=== PATIENT | male | born 1950 | race Caucasian/White ===

== ENCOUNTER 2018-08-25 14:41 | Day surgery (SDC) | payer MEDICARE, BC ==
[2018-08-25] VITALS (8 sets, daily range): BP systolic 111–147; BP diastolic 59–77
[~2018-08-25] VITALS: Ht 177.8 cm; Wt 125.3 kg
[~2018-08-25 14:41] MED LIST: ASPI81TA52 PO; ATOR20TA PO; FURO-150 PO; METO25TA6 PO; MULT-342 PO; NITR0.4T51 SL; PRAS50CA2 PO; SERT50TA PO; potassium PO; vitamin B-12 PO
[2018-08-25] MEDS ORDERED: pneumococcal 23-VAL P-sac vacc 25 mcg/0.5ml vial IMVAC ONE (16:10)
[2018-08-25] MEDS ORDERED: diphenhydrAMINE 25mg capsule PO PRN (16:40)
[2018-08-25] MEDS ORDERED: normal saline 1000ml 1,000 ML IV SCH (16:40)
[2018-08-25] MEDS ORDERED: LORazepam 0.5 MG tablet PO PRN (16:40)
[2018-08-25] MEDS ORDERED: midazolam 2 mg/2 ml injection ONE (17:34)
[2018-08-25] MEDS ORDERED: fentaNYL/PF 50MCG/1 ML 2ML syringe ONE (17:34)
[2018-08-25] MEDS ORDERED: LIDOcaine 1% (10mg/ml)w/preservative injection 20ml MDV ONE (17:35)
[2018-08-25] MEDS ORDERED: iohexol 350MG/ML 100ml bottle IV ONE (17:35)
[2018-08-25] MEDS ORDERED: OXAZEpam 15mg capsule PO PRN (18:55)
[2018-08-25] MEDS ORDERED: proCHLORperazine 10 MG/2 ml inj IV PRN (18:55)
[2018-08-25] MEDS ORDERED: HYDROcodone/acetaminophen 5mg/325mg tablet PO PRN (18:55)
[2018-08-25] MEDS ORDERED: acetaminophen 325mg tablet PO PRN (18:55)
[2018-08-25] MEDS ORDERED: ondansetron/PF 4mg/2ml inj IV PRN (18:55)
[2018-08-25] MEDS ORDERED: HYDROcodone/acetaminophen 10/325mg tab PO PRN (18:55)
[2018-09-01] MEDS ORDERED: POTA20TA19 PO (14:40)
== END 2018-08-25 20:45 | disposition home or self-care (01) ==
LOC: SSTAY O 14:41
PROVIDERS: ATTEND Internal Medicine Interventional Cardiology
DX: I25.700 Atherosclerosis of coronary artery bypass graft(s), unspecified, with unstable angina pectoris (principal); I10 Essential (primary) hypertension; E78.5 Hyperlipidemia, unspecified; I27.20 Pulmonary hypertension, unspecified; F32.9 Major depressive disorder, single episode, unspecified; G47.33 Obstructive sleep apnea (adult) (pediatric); I35.2 Nonrheumatic aortic (valve) stenosis with insufficiency; E11.9 Type 2 diabetes mellitus without complications; N28.89 Other specified disorders of kidney and ureter; I44.2 Atrioventricular block, complete; Z95.1 Presence of aortocoronary bypass graft; Z87.891 Personal history of nicotine dependence; Z95.0 Presence of cardiac pacemaker; Z96.652 Presence of left artificial knee joint; Z79.82 Long term (current) use of aspirin; Z79.84 Long term (current) use of oral hypoglycemic drugs; Z95.5 Presence of coronary angioplasty implant and graft; Z72.89 Other problems related to lifestyle; Z79.899 Other long term (current) drug therapy; Z98.890 Other specified postprocedural states; Z82.49 Family history of ischemic heart disease and other diseases of the circulatory system
CPT/HCPCS: 93005; 93459; 99152; 99153; A6257; C1760; J1644; J2001; J2250; J3010; J7030; Q0163; Q9967; A4620; C1769

== ENCOUNTER 2018-09-02 05:20 | Inpatient (IN) | payer MEDICARE, BC ==
[2018-09-01 15:26] LABS: ABG BASE EXCESS 1.1 mmol/L (-2.0-3.0); ABG HCO3 25.5 mmol/L (22.0-26.0); ABG OXYGEN SATURATION 93.9 % (95-98); ABG PCO2 (T) 39.7 mmHg (35.0-48.0); ABG PH (T) 7.425 (7.350-7.450); ABG PO2 (T) 67.5 mmHg (83-108); ALLEN'S TEST Positive; FCOHb 0.9 % (0.5-1.5); FMetHb 0.3 % (0.3-1.12); FO2Hb 92.8 % (94-100); TOTAL HEMOGLOBIN 14.4 G/dl (14.0-18.0)
[2018-09-01 16:14] LABS: BASOPHILS % (AUTO) 0.6 % (0-1); EOSINOPHILS # (AUTO) 0.1 X10'3 (0-0.9); EOSINOPHILS % (AUTO) 1.7 % (0-6); LYMPHOCYTES # (AUTO) 1.2 X10'3 (1.1-4.8); LYMPHOCYTES % (AUTO) 22.2 % (21-51); MEAN CORPUSCULAR HEMOGLOBIN 31.6 PG (27.0-31.0); MEAN CORPUSCULAR HGB CONC 34.1 % (33.0-36.5); MEAN CORPUSCULAR VOLUME 92.7 FL (78-98); MEAN PLATELET VOLUME 8.1 FL (7.4-10.4); MONOCYTES # (AUTO) 0.3 X10'3 (0-0.9); NEUTROPHILS # (AUTO) 3.9 X10'3 (1.8-7.7); NEUTROPHILS % (AUTO) 69.5 % (42-75); PRE OP HEMATOCRIT 40.2 % (42.0-52.0); PRE OP HEMOGLOBIN 13.7 g/dL (14.0-17.9); PRE OP PLATELET COUNT 156 X10'3 (140-440); RED BLOOD COUNT 4.34 X10'6 (4.70-6.10); RED CELL DISTRIBUTION WIDTH 14.4 % (11.5-14.5)
[2018-09-01 16:14] LABS: CLARITY,URINE CLEAR (Clear); COLOR,URINE YELLOW (Yellow); GLUCOSE, URINE NEGATIVE (Neg); KETONES,URINE NEGATIVE (Neg); LEUKOCYTE ESTERASE ,URINE NEGATIVE (Neg); NITRITES, URINE NEGATIVE (Neg); OCCULT BLOOD,URINE NEGATIVE (Neg); PROTEIN,URINE NEGATIVE (Neg); UROBILINOGEN,URINE 0.2 E.U/dL (0.2-1.0)
[2018-09-01 16:19] LABS: UA COLLECTION TYPE CLN CATCH MIDSTREAM
[2018-09-01 16:29] LABS: ALBUMIN 3.8 G/DL (3.4-5.0); ALKALINE PHOSPHATASE 90 IU/L (46-116); BLOOD UREA NITROGEN 15 MG/DL (7-18); BUN/CREATININE RATIO 14.7 (5.4-32.0); CALCIUM 9.2 MG/DL (8.5-10.1); CHLORIDE 104 MMOL/L (99-107); CREATININE 1.02 MG/DL (0.60-1.10); PRE OP ALT 42 U/L (30-65); PRE OP ANION GAP 8 (8-16); PRE OP AST 27 U/L (10-37); PRE OP BILIRUB, TOTAL 0.9 MG/DL (0.0-1.0); PRE OP GLUCOSE 103 MG/DL (70-104); PRE OP POTASSIUM 4.1 MMOL/L (3.4-5.1); PRE OP SODIUM 139 MMOL/L (135-145); TOTAL CARBON DIOXIDE 26.6 MMOL/L (24-32); TOTAL PROTEIN 7.5 G/DL (6.4-8.2); eGFR 72 ML/MIN
[2018-09-01 16:31] LABS: HEMOGLOBIN A1C 5.8 % (4.5-6.2)
[2018-09-01 17:05] LABS: PRE OP PROTIME 10.4 SECONDS (9.0-12.0)
[2018-09-02] VITALS (9 sets, daily range): BP systolic 110–145; BP diastolic 50–82
[~2018-09-02] VITALS: Ht 177.8 cm; Wt 130.0 kg
[~2018-09-02 05:20] MED LIST changes: +LORazepam 2 mg/ml vial ONE; -METO25TA6 PO; -MULT-342 PO; +POTA20TA19 PO; -PRAS50CA2 PO; +dextrose 50%-water 50ml dispensing syringe IV PRN; +mupirocin 2% nasal ointment 1gm UD NS SCH; -potassium PO; +ringers solution, lacted 1,000 ML IV SCH; -vitamin B-12 PO
[2018-09-02] MEDS ORDERED: cefazolin/dext.iso 2gm/100 ML IV ONE (05:30)
[2018-09-02] MEDS ORDERED: famotidine 20mg tablet PO ONE (05:30)
[2018-09-02] MEDS ORDERED: ceFAZolin inj. 3,000 MG in normal saline 100ml IV soln 100 ML IV ONE (05:30)
[2018-09-02] MEDS ORDERED: insulin regular, human inj. 100 UNITS in normal saline 100ml IV IV SCH ×2 (05:30)
[2018-09-02] MEDS ORDERED: LORazepam 2 mg/ml vial IV PRN (05:30)
[2018-09-02] MEDS ORDERED: vancomycin inj 1,500 MG in normal saline 300ml IV soln IV ONE (05:30)
[2018-09-02] MEDS ORDERED: LIDOcaine 1% (10mg/ml) 2ml vial ONE (06:24)
[2018-09-02] MEDS ORDERED: metoprolol tartrate 12.5mg (1/2 tablet) PO ONE (06:30)
[2018-09-02] MEDS ORDERED: heparin 1,000 units/ml 10ml inj ONE ×2 (09:00→14:00)
[2018-09-02] MEDS ORDERED: papaverine 30 mg/ml 2ml inj. ONE (09:00)
[2018-09-02] MEDS ORDERED: propofol 10mg/ml 20ml vial IV ONE (11:52)
[2018-09-02] MEDS ORDERED: aminocaproic acid 250 MG/1 ML inj. ONE ×2 (11:52→14:00)
[2018-09-02] MEDS ORDERED: isoflurane 100ml inhalation liquid IH ONE (11:52)
[2018-09-02] MEDS ORDERED: niCARDipine in NS 40mg/200ml (0.2mg/ml) IVPB IV ONE (11:52)
[2018-09-02] MEDS ORDERED: nitroGLYCERIN in D5W 50mg/250ml (Tridil) infusion IV ONE (11:52)
[2018-09-02] MEDS ORDERED: protamine sulf. 10mg/ml inj. IV ONE (11:52)
[2018-09-02] MEDS ORDERED: SUFENTANIL CITRATE 50 MCG/ML 2ml ampule IV ONE (11:59)
[2018-09-02] MEDS ORDERED: rocuronium 10mg/ml inj IV ONE (12:02)
[2018-09-02] MEDS ORDERED: papaverine 30 mg/ml 2ml inj. IA ONE (13:03)
[2018-09-02] MEDS ORDERED: heparin 10,000 units/1 ML INJ IR ONE (13:04)
[2018-09-02 13:36] LABS: ABG BASE EXCESS -2.1 mmol/L (-2.0-3.0); ABG HCO3 21.5 mmol/L (22.0-26.0); ABG OXYGEN SATURATION 98.4 % (95-98); ABG PCO2 33.1 mmHg (35.0-45.0); ABG PH 7.431 (7.350-7.450); ABG PO2 133.8 mmHg (60.0-100.0); CL (ABG) 109 mmol/L (99-107); FCOHb 0.3 % (0.5-1.5); FMetHb 0.3 % (0.3-1.12); FO2Hb 97.8 % (94-100); GLUCOSE (ABG) 120 mg/dl (70-105); IONIZED CA (ABG) 1.12 mmol/L (1.03-1.32); NA (ABG) 135 mmol/L (135-145); TOTAL HEMOGLOBIN 11.8 G/dl (14.0-18.0)
[2018-09-02] MEDS ORDERED: pancuronium br 1mg/ml inj IV ONE (13:46)
[2018-09-02] MEDS ORDERED: calcium chloride 100 MG/1 ML inj IV ONE (14:00)
[2018-09-02] MEDS ORDERED: phenylephrine 10mg/ml inj. ONE (14:00)
[2018-09-02] MEDS ORDERED: methylPREDNISolone sod. succ. 500mg inj ONE (14:00)
[2018-09-02] MEDS ORDERED: heparin 10,000 units/1 ML INJ ONE (14:00)
[2018-09-02] MEDS ORDERED: sodium bicarbonate (8.4%) 1 mEq/ml syringe ONE (14:00)
[2018-09-02] MEDS ORDERED: potassium Cl 2 mEq/ml inj IV ONE (14:00)
[2018-09-02] MEDS ORDERED: magnesium sulf 1 GM/2 ML ONE (14:00)
[2018-09-02] MEDS ORDERED: LIDOcaine 2% (20 mg/ml) 5ml cardiac syringe ONE (14:00)
[2018-09-02] MEDS ORDERED: albumin (human) 25% 100 ML IV solution IV ONE (14:00)
[2018-09-02] MEDS ORDERED: albuterol 2.5 MG/3 ML nebule NEB PRN (14:05)
[2018-09-02 14:11] LABS: ABG BASE EXCESS -1.7 mmol/L (-2.0-3.0); ABG HCO3 21.6 mmol/L (22.0-26.0); ABG OXYGEN SATURATION 99.1 % (95-98); ABG PH 7.461 (7.350-7.450); ABG PO2 346.3 mmHg (60.0-100.0); CL (ABG) 107 mmol/L (99-107); FCOHb 0.4 % (0.5-1.5); FMetHb 0.2 % (0.3-1.12); FO2Hb 98.5 % (94-100); GLUCOSE (ABG) 117 mg/dl (70-105); IONIZED CA (ABG) 1.01 mmol/L (1.03-1.32); K (ABG) 5.7 mmol/L (3.3-5.1); NA (ABG) 133 mmol/L (135-145); TOTAL HEMOGLOBIN 9.2 G/dl (14.0-18.0)
[2018-09-02 14:41] LABS: ABG BASE EXCESS -2.3 mmol/L (-2.0-3.0); ABG HCO3 24.4 mmol/L (22.0-26.0); ABG PCO2 51.2 mmHg (35.0-45.0); ABG PH 7.296 (7.350-7.450); ABG PO2 276.9 mmHg (60.0-100.0); CL (ABG) 106 mmol/L (99-107); FCOHb 0.1 % (0.5-1.5); FMetHb 0.1 % (0.3-1.12); FO2Hb 98.8 % (94-100); GLUCOSE (ABG) 138 mg/dl (70-105); IONIZED CA (ABG) 1.06 mmol/L (1.03-1.32); K (ABG) 5.5 mmol/L (3.3-5.1); NA (ABG) 135 mmol/L (135-145); TOTAL HEMOGLOBIN 9.6 G/dl (14.0-18.0)
[2018-09-02 14:45] LABS: ABG BASE EXCESS -0.7 mmol/L (-2.0-3.0); ABG HCO3 23.5 mmol/L (22.0-26.0); ABG OXYGEN SATURATION 99.2 % (95-98); ABG PCO2 36.4 mmHg (35.0-45.0); ABG PH 7.427 (7.350-7.450); ABG PO2 371.5 mmHg (60.0-100.0); CL (ABG) 107 mmol/L (99-107); FCOHb 0.1 % (0.5-1.5); FMetHb 0.2 % (0.3-1.12); FO2Hb 98.9 % (94-100); GLUCOSE (ABG) 137 mg/dl (70-105); IONIZED CA (ABG) 1.03 mmol/L (1.03-1.32); K (ABG) 5.1 mmol/L (3.3-5.1); NA (ABG) 136 mmol/L (135-145); TOTAL HEMOGLOBIN 9.5 G/dl (14.0-18.0)
[2018-09-02 15:15] LABS: ABG BASE EXCESS -2.4 mmol/L (-2.0-3.0); ABG HCO3 21.9 mmol/L (22.0-26.0); ABG OXYGEN SATURATION 99.1 % (95-98); ABG PCO2 35.6 mmHg (35.0-45.0); ABG PH 7.407 (7.350-7.450); ABG PO2 335.4 mmHg (60.0-100.0); CL (ABG) 107 mmol/L (99-107); FCOHb 0.3 % (0.5-1.5); FMetHb 0.2 % (0.3-1.12); FO2Hb 98.6 % (94-100); GLUCOSE (ABG) 144 mg/dl (70-105); IONIZED CA (ABG) 1.05 mmol/L (1.03-1.32); K (ABG) 4.9 mmol/L (3.3-5.1); NA (ABG) 136 mmol/L (135-145); TOTAL HEMOGLOBIN 9.7 G/dl (14.0-18.0)
[2018-09-02 16:11] LABS: ACT @ 1.70 U 353 SEC (193-297); ACT @ 2.84 U 541 SEC (260-420); BASELINE ACT 165 SEC (101-148)
[2018-09-02 16:11] LABS: ABG BASE EXCESS -0.3 mmol/L (-2.0-3.0); ABG HCO3 23.5 mmol/L (22.0-26.0); ABG OXYGEN SATURATION 98.8 % (95-98); ABG PH 7.444 (7.350-7.450); ABG PO2 263.2 mmHg (60.0-100.0); CL (ABG) 108 mmol/L (99-107); FCOHb 0.3 % (0.5-1.5); FMetHb 0.4 % (0.3-1.12); FO2Hb 98.1 % (94-100); GLUCOSE (ABG) 144 mg/dl (70-105); IONIZED CA (ABG) 1.11 mmol/L (1.03-1.32); K (ABG) 4.4 mmol/L (3.3-5.1); NA (ABG) 136 mmol/L (135-145); TOTAL HEMOGLOBIN 10.2 G/dl (14.0-18.0)
[2018-09-02] MEDS ORDERED: nitroGLYCERIN-Tridil 50MG/D5W 250 ML IV PRN (16:29)
[2018-09-02] MEDS ORDERED: DOPamine 400mg/D5W 250ml 250 ML IV PRN (16:29)
[2018-09-02] MEDS ORDERED: niCARDipine-NS 40mg/200ml IVPB 200 ML IV PRN (16:29)
[2018-09-02] MEDS ORDERED: Neutra Phos packet PO PRN (16:30)
[2018-09-02] MEDS ORDERED: magnesium 4gm in 100ml NS 100 ML IV PRN (16:30)
[2018-09-02] MEDS ORDERED: potassium Cl 20mEq/100mL bag 100 ML IV PRN ×2 (16:30)
[2018-09-02] MEDS ORDERED: acetaminophen 325mg tablet PO PRN (16:30)
[2018-09-02] MEDS ORDERED: metoclopramide 5 mg/ml inj IV PRN (16:30)
[2018-09-02] MEDS ORDERED: morphine 4 MG/ML inj SYRINge IV PRN (16:30)
[2018-09-02] MEDS ORDERED: sodium phosphate inj. 15 MMOL in dextrose 5%-water 150 ML IV PRN (16:30)
[2018-09-02] MEDS ORDERED: dextrose 50%-water 50ml dispensing syringe IV PRN (16:30)
[2018-09-02] MEDS ORDERED: ondansetron/PF 4mg/2ml inj IV PRN (16:30)
[2018-09-02] MEDS ORDERED: albumin (Human) 5% 250ml 250 ML IV PRN (16:30)
[2018-09-02] MEDS ORDERED: sodium phosphate inj. 30 MMOL in dextrose 5%-water 250 ML IV PRN (16:30)
[2018-09-02] MEDS ORDERED: normal saline 250ml IV soln 250 ML IV PRN (16:30)
[2018-09-02] MEDS ORDERED: magnesium 2GM in 50ml NS 50 ML IV PRN (16:30)
[2018-09-02] MEDS ORDERED: insulin regular, human inj. 100 UNITS in normal saline 100ml IV soln 100 ML IV SCH ×2 (16:30)
[2018-09-02] MEDS ORDERED: magnesium hydroxide 30ml (MOM) UD suspension PO PRN (16:30)
[2018-09-02] MEDS ORDERED: pantoprazole 40 MG vial IV ONE (16:30)
[2018-09-02 17:15] LABS: ABG BASE EXCESS 0.1 mmol/L (-2.0-3.0); ABG HCO3 25.2 mmol/L (22.0-26.0); ABG OXYGEN SATURATION 94.6 % (95-98); ABG PCO2 (T) 41.3 mmHg (35.0-48.0); ABG PO2 (T) 74.5 mmHg (83-108); FCOHb 0.3 % (0.5-1.5); FMetHb 0.1 % (0.3-1.12); FO2Hb 94.2 % (94-100); MINUTE VOLUME 9 L/min; PATIENT TEMPERATURE 36.3; PEEP 5 cm H2O; RESPIRATORY RATE 12 b/min; RESPIRATORY RATE (OBSERVED) 12 b/min; TIDAL VOLUME 750 mL; TOTAL HEMOGLOBIN 12.8 G/dl (14.0-18.0)
[2018-09-02] MEDS: morphine 4 MG/ML inj SYRINge IV PRN ×2 (17:26→19:01)
[2018-09-02] MEDS: insulin Lispro (HumaLOG) vial - multi-dose SQ SCH (17:27)
[2018-09-02] MEDS: sodium chloride 0.45% 1,000 ML IV SCH (17:28)
[2018-09-02 17:30] LABS: BASOPHILS % (AUTO) 0.2 % (0-1); EOSINOPHILS # (AUTO) 0.2 X10'3 (0-0.9); EOSINOPHILS % (AUTO) 1.4 % (0-6); HEMATOCRIT 34.8 % (42.0-52.0); LYMPHOCYTES # (AUTO) 1.2 X10'3 (1.1-4.8); LYMPHOCYTES % (AUTO) 10.1 % (21-51); MEAN CORPUSCULAR HEMOGLOBIN 31.8 PG (27.0-31.0); MEAN CORPUSCULAR HGB CONC 34.5 % (33.0-36.5); MEAN CORPUSCULAR VOLUME 92.1 FL (78-98); MEAN PLATELET VOLUME 8.1 FL (7.4-10.4); MONOCYTES # (AUTO) 0.4 X10'3 (0-0.9); MONOCYTES % (AUTO) 3.4 % (2-12); NEUTROPHILS # (AUTO) 9.8 X10'3 (1.8-7.7); NEUTROPHILS % (AUTO) 84.9 % (42-75); PLATELET COUNT 138 X10'3 (140-440); RED BLOOD COUNT 3.78 X10'6 (4.70-6.10); RED CELL DISTRIBUTION WIDTH 14.5 % (11.5-14.5); WHITE BLOOD COUNT 11.5 X10'3 (4.5-11.0)
[2018-09-02 17:37] LABS: ALANINE AMINOTRANSFERASE 30 U/L (12-78); ALBUMIN 3.3 G/DL (3.4-5.0); ALBUMIN/GLOBULIN RATIO 1.3 (1.1-1.5); ALKALINE PHOSPHATASE 65 IU/L (46-116); ANION GAP 6 (8-16); ASPARTATE AMINO TRANSFERASE 41 U/L (10-37); BILIRUBIN,TOTAL 1.2 MG/DL (0.1-1.0); BLOOD UREA NITROGEN 14 MG/DL (7-18); CHLORIDE 109 MMOL/L (99-107); GLUCOSE 149 MG/DL (70-104); MAGNESIUM 3.3 MG/DL (1.5-2.4); PHOSPHORUS 1.5 MG/DL (2.3-4.5); SODIUM 141 MMOL/L (135-145); TOTAL CARBON DIOXIDE 25.9 MMOL/L (24-32); TOTAL PROTEIN 5.9 G/DL (6.4-8.2); eGFR 74 ML/MIN
[2018-09-02 17:41] LABS: INR 1.1 INR; PARTIAL THROMBOPLASTIN TIME 24 SECONDS (22-32); PROTHROMBIN TIME 11.4 SECONDS (9.0-12.0)
[2018-09-02 17:47] LABS: POTASSIUM 3.9 MMOL/L (3.5-5.1)
[2018-09-02] MEDS: potassium Cl 20mEq/100mL bag 100 ML IV PRN (19:53)
[2018-09-02] MEDS: docusate sod 100mg capsule PO SCH (20:00)
[2018-09-02] MEDS: mupirocin 2% nasal ointment 1gm UD NS SCH (20:00)
[2018-09-02] MEDS: vancomycin/NS 1 GM ADD-VANTAGE 250 ML IV SCH (21:25)
[2018-09-02 23:11] LABS: ABG HCO3 21.6 mmol/L (22.0-26.0); ABG OXYGEN SATURATION 96.5 % (95-98); ABG PCO2 (T) 36.3 mmHg (35.0-48.0); ABG PO2 (T) 91.4 mmHg (83-108); FMetHb 0.1 % (0.3-1.12); FO2Hb 96.4 % (94-100); MINUTE VOLUME 11 L/min; PATIENT TEMPERATURE 36.3; PEEP 5 cm H2O; TOTAL HEMOGLOBIN 12.5 G/dl (14.0-18.0)
[2018-09-02 23:11] LABS: BASOPHILS % (AUTO) 0 % (0-1); EOSINOPHILS # (AUTO) 0.2 X10'3 (0-0.9); EOSINOPHILS % (AUTO) 1.7 % (0-6); HEMATOCRIT 33.9 % (42.0-52.0); HEMOGLOBIN 11.5 g/dl (14.0-17.9); LYMPHOCYTES # (AUTO) 0.7 X10'3 (1.1-4.8); LYMPHOCYTES % (AUTO) 6.5 % (21-51); MEAN CORPUSCULAR HEMOGLOBIN 31.5 PG (27.0-31.0); MEAN CORPUSCULAR HGB CONC 33.8 % (33.0-36.5); MEAN CORPUSCULAR VOLUME 93.3 FL (78-98); MEAN PLATELET VOLUME 8.2 FL (7.4-10.4); MONOCYTES # (AUTO) 0.3 X10'3 (0-0.9); MONOCYTES % (AUTO) 2.7 % (2-12); NEUTROPHILS # (AUTO) 9.9 X10'3 (1.8-7.7); NEUTROPHILS % (AUTO) 89.1 % (42-75); PLATELET COUNT 139 X10'3 (140-440); RED BLOOD COUNT 3.63 X10'6 (4.70-6.10); RED CELL DISTRIBUTION WIDTH 14.9 % (11.5-14.5); WHITE BLOOD COUNT 11.1 X10'3 (4.5-11.0)
[2018-09-02 23:22] LABS: ALBUMIN 3.3 G/DL (3.4-5.0); ANION GAP 11 (8-16); BLOOD UREA NITROGEN 15 MG/DL (7-18); BUN/CREATININE RATIO 13.8 (5.4-32.0); CHLORIDE 110 MMOL/L (99-107); CREATININE 1.09 MG/DL (0.60-1.10); GLUCOSE 132 MG/DL (70-104); MAGNESIUM 2.8 MG/DL (1.5-2.4); PHOSPHORUS 2.3 MG/DL (2.3-4.5); POTASSIUM 4.2 MMOL/L (3.5-5.1); SODIUM 143 MMOL/L (135-145); eGFR 67 ML/MIN
[2018-09-03] VITALS (24 sets, daily range): BP systolic 115–188; BP diastolic 42–68
[2018-09-03] MEDS: ceFAZolin 1GM/D5W- ADD-VANTAGE 50 ML IV SCH ×3 (01:23→15:20)
[2018-09-03 02:34] LABS: BASOPHILS % (AUTO) 0.1 % (0-1); EOSINOPHILS # (AUTO) 0.2 X10'3 (0-0.9); EOSINOPHILS % (AUTO) 1.7 % (0-6); HEMATOCRIT 32.6 % (42.0-52.0); HEMOGLOBIN 11.1 g/dl (14.0-17.9); LYMPHOCYTES # (AUTO) 0.5 X10'3 (1.1-4.8); LYMPHOCYTES % (AUTO) 4.6 % (21-51); MEAN CORPUSCULAR HEMOGLOBIN 31.6 PG (27.0-31.0); MEAN CORPUSCULAR VOLUME 93.1 FL (78-98); MEAN PLATELET VOLUME 8.4 FL (7.4-10.4); MONOCYTES # (AUTO) 0.4 X10'3 (0-0.9); MONOCYTES % (AUTO) 4.1 % (2-12); NEUTROPHILS # (AUTO) 8.8 X10'3 (1.8-7.7); NEUTROPHILS % (AUTO) 89.5 % (42-75); PLATELET COUNT 122 X10'3 (140-440); RED BLOOD COUNT 3.51 X10'6 (4.70-6.10); RED CELL DISTRIBUTION WIDTH 14.4 % (11.5-14.5); WHITE BLOOD COUNT 9.9 X10'3 (4.5-11.0)
[2018-09-03 02:47] LABS: INR 1.1 INR; PARTIAL THROMBOPLASTIN TIME 25 SECONDS (22-32); PROTHROMBIN TIME 11.1 SECONDS (9.0-12.0)
[2018-09-03 02:48] LABS: ALANINE AMINOTRANSFERASE 29 U/L (12-78); ALBUMIN 3.2 G/DL (3.4-5.0); ALBUMIN/GLOBULIN RATIO 1.1 (1.1-1.5); ALKALINE PHOSPHATASE 62 IU/L (46-116); ANION GAP 9 (8-16); ASPARTATE AMINO TRANSFERASE 45 U/L (10-37); BILIRUBIN,TOTAL 0.8 MG/DL (0.1-1.0); BLOOD UREA NITROGEN 16 MG/DL (7-18); CALCIUM 7.9 MG/DL (8.5-10.1); CHLORIDE 110 MMOL/L (99-107); GLUCOSE 138 MG/DL (70-104); MAGNESIUM 2.8 MG/DL (1.5-2.4); PHOSPHORUS 2.6 MG/DL (2.3-4.5); POTASSIUM 4.9 MMOL/L (3.5-5.1); SODIUM 143 MMOL/L (135-145); TOTAL CARBON DIOXIDE 24.2 MMOL/L (24-32); eGFR 74 ML/MIN
[2018-09-03] MEDS: HYDROcodone/acetaminophen 10/325mg tab PO PRN ×3 (04:30→23:12)
[2018-09-03] MEDS: mupirocin 2% nasal ointment 1gm UD NS SCH ×2 (07:46→19:28)
[2018-09-03] MEDS: atorvastatin 10mg tablet PO SCH (07:46)
[2018-09-03] MEDS: vancomycin/NS 1 GM ADD-VANTAGE 250 ML IV SCH ×2 (07:46→19:27)
[2018-09-03] MEDS: aspirin 325mg tablet, delayed-release (Ecotrin) PO SCH (07:46)
[2018-09-03] MEDS: docusate sod 100mg capsule PO SCH ×2 (07:48→19:27)
[2018-09-03] MEDS: metoprolol tartrate 12.5mg (1/2 tablet) PO SCH ×2 (07:56→19:28)
[2018-09-03] MEDS ORDERED: dextrose 50%-water 50ml dispensing syringe IV PRN ×4 (08:00→11:25)
[2018-09-03] MEDS ORDERED: dextrose ORAL solution 15 GM/59 ML bottle PO PRN ×4 (08:00→11:25)
[2018-09-03] MEDS ORDERED: MESSAGE TO PHARMACY PO ONE ×2 (08:00→11:25)
[2018-09-03] MEDS ORDERED: insulin Lispro (HumaLOG) vial - multi-dose SQ SCH ×2 (08:00→11:25)
[2018-09-03] MEDS ORDERED: glucagon, human recombinant 1mg kit SUBCUT PRN ×2 (08:00→11:25)
[2018-09-03] MEDS: insulin Lispro (HumaLOG) vial - multi-dose SQ SCH ×2 (09:00→11:12)
[2018-09-03] MEDS: sertraline 50mg tablet PO SCH (21:00)
[2018-09-03] MEDS ORDERED: insulin glargine (Lantus) pen - multi-dose SQ SCH (21:00)
[2018-09-03] MEDS: insulin glargine (Lantus) pen - multi-dose SQ SCH (21:00)
[2018-09-04] VITALS (24 sets, daily range): BP systolic 101–147; BP diastolic 55–86
[2018-09-04] MEDS: ceFAZolin 1GM/D5W- ADD-VANTAGE 50 ML IV SCH ×2 (00:50→07:58)
[2018-09-04 02:59] LABS: BASOPHILS % (AUTO) 0.2 % (0-1); EOSINOPHILS # (AUTO) 0.2 X10'3 (0-0.9); EOSINOPHILS % (AUTO) 1.5 % (0-6); HEMATOCRIT 30.5 % (42.0-52.0); HEMOGLOBIN 10.4 g/dl (14.0-17.9); LYMPHOCYTES # (AUTO) 0.9 X10'3 (1.1-4.8); LYMPHOCYTES % (AUTO) 8.4 % (21-51); MEAN CORPUSCULAR HEMOGLOBIN 31.6 PG (27.0-31.0); MEAN CORPUSCULAR VOLUME 92.9 FL (78-98); MEAN PLATELET VOLUME 8.7 FL (7.4-10.4); MONOCYTES # (AUTO) 0.6 X10'3 (0-0.9); MONOCYTES % (AUTO) 5.8 % (2-12); NEUTROPHILS # (AUTO) 9.4 X10'3 (1.8-7.7); NEUTROPHILS % (AUTO) 84.1 % (42-75); PLATELET COUNT 129 X10'3 (140-440); RED BLOOD COUNT 3.28 X10'6 (4.70-6.10); RED CELL DISTRIBUTION WIDTH 14.7 % (11.5-14.5); WHITE BLOOD COUNT 11.2 X10'3 (4.5-11.0)
[2018-09-04 03:12] LABS: ALBUMIN 3.3 G/DL (3.4-5.0); ANION GAP 7 (8-16); BLOOD UREA NITROGEN 19 MG/DL (7-18); BUN/CREATININE RATIO 19.6 (5.4-32.0); CALCIUM 8.4 MG/DL (8.5-10.1); CHLORIDE 102 MMOL/L (99-107); CREATININE 0.97 MG/DL (0.60-1.10); GLUCOSE 147 MG/DL (70-104); MAGNESIUM 2.6 MG/DL (1.5-2.4); PHOSPHORUS 2.7 MG/DL (2.3-4.5); POTASSIUM 4.4 MMOL/L (3.5-5.1); SODIUM 136 MMOL/L (135-145); TOTAL CARBON DIOXIDE 27.4 MMOL/L (24-32); eGFR 77 ML/MIN
[2018-09-04] MEDS: HYDROcodone/acetaminophen 10/325mg tab PO PRN ×3 (05:21→19:30)
[2018-09-04] MEDS: mupirocin 2% nasal ointment 1gm UD NS SCH (07:58)
[2018-09-04] MEDS: metoprolol tartrate 12.5mg (1/2 tablet) PO SCH ×2 (07:59→19:29)
[2018-09-04] MEDS: pantoprazole 40mg Tablet.DR PO SCH (08:00)
[2018-09-04] MEDS: atorvastatin 10mg tablet PO SCH (08:00)
[2018-09-04] MEDS: docusate sod 100mg capsule PO SCH ×2 (08:00→19:30)
[2018-09-04] MEDS: aspirin 325mg tablet, delayed-release (Ecotrin) PO SCH (08:00)
[2018-09-04] MEDS ORDERED: furosemide 40mg/4ml inj IV ONE (11:45)
[2018-09-04] MEDS: sodium chloride 0.45% 1,000 ML IV SCH (17:31)
[2018-09-04] MEDS: sertraline 50mg tablet PO SCH (18:27)
[2018-09-04] MEDS: insulin glargine (Lantus) pen - multi-dose SQ SCH (18:28)
[2018-09-05] VITALS (24 sets, daily range): BP systolic 109–162; BP diastolic 50–77
[2018-09-05] MEDS: HYDROcodone/acetaminophen 10/325mg tab PO PRN ×3 (00:12→23:57)
[2018-09-05 02:21] LABS: BASOPHILS % (AUTO) 0.3 % (0-1); EOSINOPHILS # (AUTO) 0.2 X10'3 (0-0.9); EOSINOPHILS % (AUTO) 1.8 % (0-6); HEMATOCRIT 29.3 % (42.0-52.0); HEMOGLOBIN 9.9 g/dl (14.0-17.9); LYMPHOCYTES # (AUTO) 1.2 X10'3 (1.1-4.8); LYMPHOCYTES % (AUTO) 13.3 % (21-51); MEAN CORPUSCULAR HEMOGLOBIN 31.7 PG (27.0-31.0); MEAN CORPUSCULAR HGB CONC 33.8 % (33.0-36.5); MEAN CORPUSCULAR VOLUME 93.6 FL (78-98); MEAN PLATELET VOLUME 9.1 FL (7.4-10.4); MONOCYTES # (AUTO) 0.6 X10'3 (0-0.9); MONOCYTES % (AUTO) 6.5 % (2-12); NEUTROPHILS # (AUTO) 6.9 X10'3 (1.8-7.7); NEUTROPHILS % (AUTO) 78.1 % (42-75); PLATELET COUNT 123 X10'3 (140-440); RED BLOOD COUNT 3.13 X10'6 (4.70-6.10); RED CELL DISTRIBUTION WIDTH 14.9 % (11.5-14.5); WHITE BLOOD COUNT 8.8 X10'3 (4.5-11.0)
[2018-09-05 02:35] LABS: ALBUMIN 3.1 G/DL (3.4-5.0); ANION GAP 8 (8-16); BLOOD UREA NITROGEN 23 MG/DL (7-18); BUN/CREATININE RATIO 24.7 (5.4-32.0); CALCIUM 8.2 MG/DL (8.5-10.1); CHLORIDE 102 MMOL/L (99-107); CREATININE 0.93 MG/DL (0.60-1.10); GLUCOSE 122 MG/DL (70-104); MAGNESIUM 2.4 MG/DL (1.5-2.4); PHOSPHORUS 2.6 MG/DL (2.3-4.5); POTASSIUM 3.8 MMOL/L (3.5-5.1); SODIUM 137 MMOL/L (135-145); TOTAL CARBON DIOXIDE 26.8 MMOL/L (24-32); eGFR 80 ML/MIN
[2018-09-05] MEDS: potassium Cl 20mEq/100mL bag 100 ML IV PRN ×2 (03:55→05:12)
[2018-09-05] MEDS: docusate sod 100mg capsule PO SCH ×2 (07:40→19:49)
[2018-09-05] MEDS: aspirin 81mg tablet.DR PO SCH (07:40)
[2018-09-05] MEDS: metoprolol tartrate 12.5mg (1/2 tablet) PO SCH ×2 (07:40→19:52)
[2018-09-05] MEDS: atorvastatin 20mg tablet PO SCH (07:40)
[2018-09-05] MEDS: pantoprazole 40mg Tablet.DR PO SCH (07:40)
[2018-09-05] MEDS ORDERED: magnesium Cl slow-release 64mg tablet PO PRN (12:40)
[2018-09-05] MEDS ORDERED: potassium Cl 20 mEq SR tablet PO PRN ×2 (12:40)
[2018-09-05] MEDS: lactose-reduced food (Ensure High Protein) 237ml bottle PO SCH (13:00)
[2018-09-05] MEDS: sertraline 50mg tablet PO SCH (21:00)
[2018-09-05] MEDS: insulin glargine (Lantus) pen - multi-dose SQ SCH (21:00)
[2018-09-06] VITALS (23 sets, daily range): BP systolic 105–147; BP diastolic 49–70
[2018-09-06 05:11] LABS: BASOPHILS % (AUTO) 0.5 % (0-1); EOSINOPHILS # (AUTO) 0.2 X10'3 (0-0.9); HEMATOCRIT 29.1 % (42.0-52.0); HEMOGLOBIN 9.9 g/dl (14.0-17.9); LYMPHOCYTES # (AUTO) 1.4 X10'3 (1.1-4.8); LYMPHOCYTES % (AUTO) 22.6 % (21-51); MEAN CORPUSCULAR HEMOGLOBIN 31.6 PG (27.0-31.0); MEAN CORPUSCULAR HGB CONC 34.1 % (33.0-36.5); MEAN CORPUSCULAR VOLUME 92.8 FL (78-98); MEAN PLATELET VOLUME 8.9 FL (7.4-10.4); MONOCYTES # (AUTO) 0.5 X10'3 (0-0.9); MONOCYTES % (AUTO) 7.6 % (2-12); NEUTROPHILS % (AUTO) 66.3 % (42-75); PLATELET COUNT 115 X10'3 (140-440); RED BLOOD COUNT 3.14 X10'6 (4.70-6.10); RED CELL DISTRIBUTION WIDTH 14.9 % (11.5-14.5)
[2018-09-06 05:32] LABS: ALBUMIN 2.6 G/DL (3.4-5.0); ANION GAP 10 (8-16); BLOOD UREA NITROGEN 17 MG/DL (7-18); BUN/CREATININE RATIO 21.8 (5.4-32.0); CALCIUM 8.3 MG/DL (8.5-10.1); CHLORIDE 103 MMOL/L (99-107); CREATININE 0.78 MG/DL (0.60-1.10); GLUCOSE 111 MG/DL (70-104); MAGNESIUM 2.4 MG/DL (1.5-2.4); PHOSPHORUS 3.4 MG/DL (2.3-4.5); POTASSIUM 3.7 MMOL/L (3.5-5.1); SODIUM 138 MMOL/L (135-145); TOTAL CARBON DIOXIDE 24.9 MMOL/L (24-32); eGFR > 90 ML/MIN
[2018-09-06 06:31] LABS: ABG BASE EXCESS -1.2 mmol/L (-2.0-3.0); ABG HCO3 21.8 mmol/L (22.0-26.0); ABG OXYGEN SATURATION 99.3 % (95-98); ABG PCO2 31.1 mmHg (35.0-45.0); ABG PH 7.463 (7.350-7.450); CL (ABG) 110 mmol/L (99-107); FCOHb 0.3 % (0.5-1.5); FMetHb 0.6 % (0.3-1.12); FO2Hb 98.4 % (94-100); GLUCOSE (ABG) 105 mg/dl (70-105); IONIZED CA (ABG) 1.14 mmol/L (1.03-1.32); K (ABG) 3.9 mmol/L (3.3-5.1); NA (ABG) 136 mmol/L (135-145); TOTAL HEMOGLOBIN 11.9 G/dl (14.0-18.0)
[2018-09-06 06:31] LABS: ACTIVATED CLOTTING TIME 113 SEC (101-148)
[2018-09-06] MEDS: metoprolol tartrate 12.5mg (1/2 tablet) PO SCH ×2 (07:42→20:19)
[2018-09-06] MEDS: aspirin 81mg tablet.DR PO SCH (07:42)
[2018-09-06] MEDS: pantoprazole 40mg Tablet.DR PO SCH (07:42)
[2018-09-06] MEDS: docusate sod 100mg capsule PO SCH ×2 (07:42→20:19)
[2018-09-06] MEDS: atorvastatin 20mg tablet PO SCH (07:42)
[2018-09-06] MEDS: lactose-reduced food (Ensure High Protein) 237ml bottle PO SCH ×3 (08:00→18:00)
[2018-09-06] MEDS: potassium Cl 20mEq/100mL bag 100 ML IV PRN (08:54)
[2018-09-06] MEDS: sodium chloride 0.45% 1,000 ML IV SCH (16:27)
[2018-09-06] MEDS ORDERED: POTASSIUM 40MEQ/500ML NS *****PERIPHERAL LINE REPLACE IV ONE (16:41)
[2018-09-06] MEDS: HYDROcodone/acetaminophen 10/325mg tab PO PRN (20:21)
[2018-09-06] MEDS: insulin glargine (Lantus) pen - multi-dose SQ SCH (21:00)
[2018-09-06] MEDS: sertraline 50mg tablet PO SCH (21:00)
[2018-09-07] VITALS (13 sets, daily range): BP systolic 102–148; BP diastolic 50–68
[2018-09-07] MEDS: HYDROcodone/acetaminophen 10/325mg tab PO PRN (01:13)
[2018-09-07 05:18] LABS: MAGNESIUM 2.3 MG/DL (1.5-2.4); PHOSPHORUS 3.9 MG/DL (2.3-4.5)
[2018-09-07] MEDS: lactose-reduced food (Ensure High Protein) 237ml bottle PO SCH (08:00)
[2018-09-07] MEDS: metoprolol tartrate 12.5mg (1/2 tablet) PO SCH (08:33)
[2018-09-07] MEDS: docusate sod 100mg capsule PO SCH (08:33)
[2018-09-07] MEDS: aspirin 81mg tablet.DR PO SCH (08:34)
[2018-09-07] MEDS: pantoprazole 40mg Tablet.DR PO SCH (08:34)
[2018-09-07] MEDS: atorvastatin 20mg tablet PO SCH (08:34)
== END 2018-09-07 13:42 | DRG 219 ==
LOC: PAS IN 05:20 → EDSTATUS 07:30 → ICU 2S 16:50
PROVIDERS: ADMIT Thoracic Surgery (Cardiothoracic Vascular Surgery); ATTEND Thoracic Surgery (Cardiothoracic Vascular Surgery)
PROC: 02RF08Z Replacement of Aortic Valve with Zooplastic Tissue, Open Approach (ICD-10-PCS; 2018-09-02)
PROC: 021009W Bypass Coronary Artery, One Artery from Aorta with Autologous Venous Tissue, Open Approach (ICD-10-PCS; 2018-09-02)
PROC: 06BQ4ZZ Excision of Left Saphenous Vein, Percutaneous Endoscopic Approach (ICD-10-PCS; 2018-09-02)
PROC: B24BZZ4 Ultrasonography of Heart with Aorta, Transesophageal (ICD-10-PCS; 2018-09-02)
PROC: 5A1221Z Performance of Cardiac Output, Continuous (ICD-10-PCS; 2018-09-02)
PROC: 4A133B3 Monitoring of Arterial Pressure, Pulmonary, Percutaneous Approach (ICD-10-PCS; 2018-09-02)
PROC: 02HP32Z Insertion of Monitoring Device into Pulmonary Trunk, Percutaneous Approach (ICD-10-PCS; 2018-09-02)
PROC: 05HY33Z Insertion of Infusion Device into Upper Vein, Percutaneous Approach (ICD-10-PCS; 2018-09-02)
PROC: 02100Z9 Bypass Coronary Artery, One Artery from Left Internal Mammary, Open Approach (ICD-10-PCS; principal; 2018-09-02 11:52)
DX: I35.0 Nonrheumatic aortic (valve) stenosis (principal); E43 Unspecified severe protein-calorie malnutrition; Z68.41 Body mass index [BMI] 40.0-44.9, adult; I50.32 Chronic diastolic (congestive) heart failure; I25.10 Atherosclerotic heart disease of native coronary artery without angina pectoris; E66.01 Morbid (severe) obesity due to excess calories; E78.5 Hyperlipidemia, unspecified; I27.20 Pulmonary hypertension, unspecified; Z96.652 Presence of left artificial knee joint; G47.33 Obstructive sleep apnea (adult) (pediatric); M19.90 Unspecified osteoarthritis, unspecified site; F32.9 Major depressive disorder, single episode, unspecified; R55 Syncope and collapse; Z95.5 Presence of coronary angioplasty implant and graft; Z79.899 Other long term (current) drug therapy; Z79.82 Long term (current) use of aspirin; Z80.9 Family history of malignant neoplasm, unspecified; Z82.49 Family history of ischemic heart disease and other diseases of the circulatory system
CPT/HCPCS: 0232T; 93312; 93325; 36415; 36600; 71045; 71046; 80048; 80053; 81003; 82330; 82435; 82803; 82947; 82948; 83036; 83735; 84100; 84132; 84295; 85018; 85025; 85347; 85384; 85610; 85730; 86885; 86900; 86901; 86920; 87070; 88300; 93005; 93880; 93970; 94002; 94010; 94668; 94760; 97110; 97116; 97162; 97530; A6257; A6258; A6402; A6449; A7000; A7048; C9113; G0378; J0690; J1644; J1815; J1940; J2001; J2060; J2270; J2370; J2405; J2440; J2704; J2720; J2930; J3370; J3475; J3480; J3490; J7030; J7120; P9045; P9047

== ENCOUNTER 2023-03-09 07:20 | Day surgery (SDC) | payer MEDICARE, BC ==
[2023-03-03 14:47] LABS: BASOPHILS # (AUTO) 0.1 X10'3 (0-0.2); BASOPHILS % (AUTO) 0.9 % (0-1); EOSINOPHILS # (AUTO) 0.2 X10'3 (0-0.9); EOSINOPHILS % (AUTO) 2.8 % (0-6); LYMPHOCYTES # (AUTO) 1.5 X10'3 (1.1-4.8); LYMPHOCYTES % (AUTO) 25.4 % (21-51); MEAN CORPUSCULAR VOLUME 91.3 FL (78-98); MEAN PLATELET VOLUME 8.1 FL (7.4-10.4); MONOCYTES # (AUTO) 0.4 X10'3 (0-0.9); MONOCYTES % (AUTO) 6.9 % (2-12); NEUTROPHILS # (AUTO) 3.8 X10'3 (1.8-7.7); PRE OP HEMATOCRIT 41.2 % (42.0-52.0); PRE OP PLATELET COUNT 146 X10'3 (140-440); RED BLOOD COUNT 4.51 X10'6 (4.70-6.10); RED CELL DISTRIBUTION WIDTH 14.7 % (11.5-14.5)
[2023-03-03 14:58] LABS: ALBUMIN 4.2 G/DL (3.4-5.0); ALBUMIN/GLOBULIN RATIO 1.3 (1.1-1.5); ALKALINE PHOSPHATASE 83 IU/L (46-116); BLOOD UREA NITROGEN 18 MG/DL (7-18); BUN/CREATININE RATIO 15.5 (10.0-20.0); CALCIUM 9.7 MG/DL (8.5-10.1); CHLORIDE 104 MMOL/L (99-107); CREATININE 1.16 MG/DL (0.60-1.10); PRE OP ALT 35 U/L (30-65); PRE OP ANION GAP 7 (8-16); PRE OP AST 22 U/L (10-37); PRE OP BILIRUB, TOTAL 1.2 MG/DL (0.0-1.0); PRE OP GLUCOSE 116 MG/DL (70-104); PRE OP POTASSIUM 4.2 MMOL/L (3.4-5.1); PRE OP SODIUM 140 MMOL/L (135-145); TOTAL CARBON DIOXIDE 29.2 MMOL/L (24-32); TOTAL PROTEIN 7.5 G/DL (6.4-8.2); eGFR 61 ML/MIN
[~2023-03-09] VITALS: Ht 177.8 cm; Wt 122.5 kg
[2023-03-09] VITALS (10 sets, daily range): BP systolic 119–141; BP diastolic 63–74
[~2023-03-09 07:20] MED LIST changes: -ASPI81TA52 PO; -ATOR20TA PO; +B12; +CARV3.122 PO; +DOCUMENT DATE & TIME OF BETA-BLOCKER PO ONE; +IRON; -LORazepam 2 mg/ml vial ONE; +MULT-1085 PO; -NITR0.4T51 SL; +POTA-207 PO; -POTA20TA19 PO; +ROSU5TAB12 PO; -SERT50TA PO; +VENL25TA48 PO; +ceFAZolin inj. 3,000 MG in normal saline 100ml IV soln 100 ML IV ONE; -dextrose 50%-water 50ml dispensing syringe IV PRN; +famotidine 20mg tablet PO ONE; -mupirocin 2% nasal ointment 1gm UD NS SCH
[2023-03-09] MEDS ORDERED: LIDOcaine 1% 30ml preserv. free vial ONE (08:16)
[2023-03-09] MEDS ORDERED: BUPIVAcaine/PF 2.5 mg/ml (0.25%) 30ml vial ONE (10:31)
[2023-03-09] MEDS ORDERED: fentaNYL/PF 50MCG/1 ML 2ML syringe ONE (10:36)
[2023-03-09] MEDS ORDERED: MIDAZolam 1 MG/ML 5ML VIAL ONE (10:36)
[2023-03-09] MEDS ORDERED: BUPIVAcaine/PF 2.5 mg/ml (0.25%) 30ml vial IJ ONE (11:01)
[2023-03-09] MEDS ORDERED: acetaminophen 1,000mg/100ml IV 100 ML IV ONE (11:10)
--- NOTE | 2023-03-09 11:32 | NUR ---
Received from OR via [facility], accompanied by Anesthesiologist DR DAWN and report given by Anesthesiolgist. PT PRESENTS WITH PIV 20G LEFTHAND, RIGHT HAND SPLINT DREHOLLYG WANDY CHAVEZ. Addendum: 03/09/23 at 1145 by Aleida Gonzalez RN, RN Amended: Links added.
== END 2023-03-09 12:42 | disposition home or self-care (01) ==
LOC: PAS 07:20
PROVIDERS: ATTEND Orthopaedic Surgery Hand Surgery
DX: G56.01 Carpal tunnel syndrome, right upper limb (principal); M65.831 Other synovitis and tenosynovitis, right forearm; J44.9 Chronic obstructive pulmonary disease, unspecified; I25.10 Atherosclerotic heart disease of native coronary artery without angina pectoris; G47.30 Sleep apnea, unspecified; E66.01 Morbid (severe) obesity due to excess calories; Z68.39 Body mass index [BMI] 39.0-39.9, adult; Z95.2 Presence of prosthetic heart valve; Z79.899 Other long term (current) drug therapy; Z72.89 Other problems related to lifestyle; Z95.1 Presence of aortocoronary bypass graft; Z96.652 Presence of left artificial knee joint; Z98.890 Other specified postprocedural states
CPT/HCPCS: 25115; 36415; 64721; 80053; 82948; 85025; 93005; A6222; J0131; J0690; J2250; J3010; J3490; J7030; J7120; Z7506; Z7508; Z7512; A4215